=== PATIENT | female | born 1950 | race Caucasian/White ===

== ENCOUNTER → 2018-10-08 | Outpatient (CLI) | payer MEDICARE, MEDICAID ==
[~2018-10-08] MED LIST: ASPIRIN 81M81 MG/TA2 PO; ATIVAN 0.50.5 MG/TAB PO; ATIVAN1 MG PO; CLONAZEPAM PO; DESYREL 100MG100 MG PO; HALCION0.25 MG PO; HCTZ 25MG TAB25 MG PO; K-TAB20 PO; LAMICTAL 100MG100 MG PO; LEVOTHYROXIN0.112 MG PO; LEVOTHYROXINE0.1 MG PO; LISINOPRIL/HCTZ1 TA2 PO; LISINOPRIL20 MG PO; LORTAB 5/500 501 TAB PO; NAPROSYN500 MG PO; NORCO 325 MG-51 TAB PO; PERCOCET 325 MG1 TA2 PO; SYNTHROID0.2 MG/TAB PO; TOPROL XL100 MG PO; TRAZODONE150 MG PO; VISTARIL50 MG PO; VITAMIN B12 PO; VITAMIN C BUFF500 MG PO; VITAMIN C500 MG PO; VITAMIN E200 I1 PO; ZOLOFT 100MG100 MG PO
== END ==
LOC: MC.RAD 14:45
DX: Z12.31 Encounter for screening mammogram for malignant neoplasm of breast (principal)

== ENCOUNTER → 2018-10-10 | Outpatient (CLI) | payer MEDICARE, MEDICAID | LOC: MC.RAD 13:55 | DX: R92.0 Mammographic microcalcification found on diagnostic imaging of breast (principal) | CPT/HCPCS: G0279 ==

== ENCOUNTER → 2018-10-21 | Outpatient (CLI) | payer MEDICARE, MEDICAID | LOC: COL.RAD 14:41 | DX: G44.039 Episodic paroxysmal hemicrania, not intractable (principal); R90.82 White matter disease, unspecified ==

== ENCOUNTER 2019-03-20 04:30 | Emergency (ER) | payer MEDICARE, MEDICAID ==
[~2019-03-20] VITALS: Ht 160 cm; Wt 70.9 kg
[2019-03-20 04:38] VITALS: TEMP 97.7
[2019-03-20] MEDS ORDERED: KLONOPIN 0.5MG0.5 MG PO (05:25)
[2019-03-20] MEDS ORDERED: NORVASC 10MG10 MG PO (05:26)
[2019-03-20] MEDS ORDERED: FLEXERIL 1010 MG/TAB PO (05:26)
[2019-03-20] MEDS ORDERED: SYNTHROID0.075 MG/T PO (05:27)
[2019-03-20 06:50] VITALS: BP 163/105; PULSE 82
== END 2019-03-20 06:59 | disposition home or self-care (01) ==
LOC: COL.ER 04:30
DX: S01.312A Laceration without foreign body of left ear, initial encounter (principal); S09.90XA Unspecified injury of head, initial encounter; F31.9 Bipolar disorder, unspecified; I10 Essential (primary) hypertension; M19.90 Unspecified osteoarthritis, unspecified site; F17.210 Nicotine dependence, cigarettes, uncomplicated; Z79.82 Long term (current) use of aspirin; W01.0XXA Fall on same level from slipping, tripping and stumbling without subsequent striking against object, initial encounter; Y92.009 Unspecified place in unspecified non-institutional (private) residence as the place of occurrence of the external cause

== ENCOUNTER 2021-04-10 00:35 | Observation (INO) | payer MEDICARE, MEDICAID ==
[~2021-04-10] VITALS: Ht 162.6 cm; Wt 68.2 kg
[~2021-04-10 00:35] MED LIST changes: +CRUTCHES MC; +FLEXERIL 1010 MG/TAB PO; +KLONOPIN 0.5MG0.5 MG PO; +NORVASC 10MG10 MG PO; +SYNTHROID0.075 MG/T PO
[2021-04-10] MEDS ORDERED: GLUCOSAMINE & C1 CA2 PO (01:27)
[2021-04-10] MEDS ORDERED: K-DUR20 MEQ PO (01:27)
[2021-04-10] MEDS ORDERED: BELSOMRA5 MG PO (01:29)
[2021-04-10] MEDS ORDERED: RELAFEN 50500 MG/TAB PO (01:31)
[2021-04-10] MEDS ORDERED: HCTZ 25MG TAB25 MG PO (01:33)
[2021-04-10] MEDS ORDERED: SYNTHROID 0.10.15 MG PO (01:34)
[2021-04-10] MEDS ORDERED: CRESTOR20 MG PO (01:35)
[2021-04-10] MEDS ORDERED: KLONOPIN 0.5MG0.5 MG PO (01:40)
--- NOTE | 2021-04-10 03:33 | NUR ---
PT ADMITTED TO UNIT AT THIS TIME. ADMISSION INTAKE AND ASSESSMENT COMPLETED. PT ON 2L OXYGEN AT THIS TIME. EDEMA NOTED TO BLE. PT NWB ON L LEG. LUNG SOUNDS COARSE CRACKLES. WILL CONTINUE TO MONITOR.
[2021-04-10 04:22] LABS: BASO % 0.5 % (0.0-2.0); EOS # 0.2 (0.0-0.7); EOS % 2.4 % (0-4.0); GRAN # 5.2 (1.4-6.5); GRAN % 68.8 % (42.2-75.2); HEMATOCRIT 38.5 % (37.0-47.0); HEMOGLOBIN 12.5 g/dl (12.5-16.0); LYMPH # 1.5 (1.2-3.4); LYMPH % 20.1 % (20.0-51.0); MEAN CELL VOLUME 93 fl (80.0-100.0); MEAN CORPUSCULAR HEMOGLOBIN 30 pg (27.0-31.0); MEAN CORPUSCULAR HGB CONC 33 g/dl (33.0-37.0); MONO # 0.6 (0.1-0.6); MONO % 8.1 % (1.7-9.3); PLATELET COUNT 251 K/mm3 (130-400); RED BLOOD COUNT 4.14 M/mm3 (4.10-5.30); REDCELL DISTRIBUTION WIDTH-CV 13.2 % (11.5-14.5)
[2021-04-10 04:27] VITALS: BP 108/47; PULSE 61; TEMP 97.7
[2021-04-10 04:36] LABS: CALCIUM 8.3 mg/dL (8.4-10.2); CREATININE, serum 0.65 (0.52-1.25); POTASSIUM 3.3 mmol/L (3.4-5.0)
--- NOTE | 2021-04-10 05:56 | NUR ---
PT WAS ABLE TO GET SOME REST AFTER TRANSFERING TO UNIT. ELEVATED L LEG ON PILLOWS, PT STATES THIS PROVIDED RELIEF. DENIES ANY NEEDS AT THIS TIME. WILL CONTINUE TO MONITOR.
[2021-04-10 07:36] VITALS: BP 91/50; PULSE 55; TEMP 97.9
[2021-04-10 12:14] VITALS: BP 127/75; PULSE 66; TEMP 98.5
--- NOTE | 2021-04-10 14:08 | NUR ---
SW met with patient to complete intake. Patient states that she lives alone. Patient provides that her next of kin is her son Robert [phone]. Patient provides that she does not utilize DME and is independent with ADL's. Patient states that her PCP is Dr. Boyer, pharmacy is [facility]. Patient provides that her son Robert is her DPOA-HC. Patient provides that physician states that she will need to go to rehab up on dc due to not being able to bare weight on her foot for a duration of time. SW will continue to follow. DC: Placement for rehab
[2021-04-10 16:13] VITALS: BP 116/68; PULSE 58; TEMP 97.9
--- NOTE | 2021-04-10 17:20 | NUR ---
Patient is very pleasant. Did c/o SOB to the hospitalist. Hospitalist ordered appropriate labs and imagining. This RN is currently waiting for the patient's chest CT to be completed. Patient has received all scheduled medications without difficulty. Patient nervous about her ankle surgery on Sunday, but this RN was able to provide some reassurance. Patient stated, "I need to be in tip-top shape when I get out of here" and smiled. Patient still using BSC and remains NWB on the left.
[2021-04-10 19:40] VITALS: BP 98/54; PULSE 57; TEMP 98.1
--- NOTE | 2021-04-10 20:30 | NUR ---
Initial shift assessment done- states pain to left ankle 02/19,Hodges given as ordered, left ankle elevated, ice applied. Up to BSC to voids- pivots, no weight to left ankle. Requesting a chocolate ice cream for a snack tonight- given. o2 at 2L/nc, using IS- up to 1200
[2021-04-10 23:38] VITALS: BP 91/53; PULSE 60; TEMP 98.7
[2021-04-11 03:57] VITALS: BP 101/56; PULSE 58; TEMP 98.5
--- NOTE | 2021-04-11 06:30 | NUR ---
Did get some sleep last night-- medicated for left ankle pain x2 this shift- ice remains to ankle, elevated
[2021-04-11 07:56] VITALS: BP 116/55; PULSE 66; TEMP 97.4
--- NOTE | 2021-04-11 08:23 | NUR ---
Patient resting in be with her left leg elevated. Splint looks good, ice is placed over it per ortho's orders. All morning medications administered as scheduled. Waiting for pharmacy to grab the patient's 2 home medications so they can be labeled. Patient has no complaints at this time.
[2021-04-11 11:21] VITALS: BP 120/60; PULSE 66; TEMP 97.6
[2021-04-11 16:17] VITALS: BP 142/80; PULSE 78; TEMP 97.6
--- NOTE | 2021-04-11 16:32 | NUR ---
[facility] accepts patient upon discharge and will submit for insurance authorization.
[2021-04-11 18:56] LABS: PROCALCITONIN <0.05 ng/mL (0.00-0.09)
[2021-04-11 21:24] VITALS: BP 122/77; PULSE 74; TEMP 98
--- NOTE | 2021-04-11 23:06 | NUR ---
PT RESTING IN BED. EVENING MEDICATIONS GIVEN. PT STATES THE PAIN IN HER LEG IS A 4/10 AND REQUESTED IT BE REPOSTIONED ON THE PILLOWS. PT DENIES ANY OTHER NEEDS AT THIS TIME. WILL CONTINUE TO MONITOR.
[2021-04-12] VITALS (14 sets, daily range): BP systolic 88–114; BP diastolic 51–80; PULSE 55–69; TEMP 97.6–98.4
--- NOTE | 2021-04-12 06:29 | NUR ---
PT HAD A RESTFUL NIGHT. PT SEEMS UPBEAT ABOUT PROCEDURE LATER TODAY. PT HAS BEEN NPO SINCE MIDNIGHT. DENIES ANY NEEDS AT THIS TIME. WILL CONTINUE TO MONITOR.
--- NOTE | 2021-04-12 07:18 | NUR ---
REPORT RECEIVED FROM TYLER LEONARDO. PT ASLEEP IN BED. BREATHING REGULAR/UNLABORED. CALL WHITNEY IN REACH.
[2021-04-12 07:20] LABS: BASO # 0.1 (0.0-0.2); BASO % 0.8 % (0.0-2.0); EOS # 0.3 (0.0-0.7); EOS % 4.1 % (0-4.0); GRAN # 3.7 (1.4-6.5); HEMATOCRIT 40.7 % (37.0-47.0); LYMPH # 1.6 (1.2-3.4); LYMPH % 25.2 % (20.0-51.0); MEAN CELL VOLUME 95 fl (80.0-100.0); MEAN CORPUSCULAR HEMOGLOBIN 30 pg (27.0-31.0); MEAN CORPUSCULAR HGB CONC 32 g/dl (33.0-37.0); MEAN PLATELET VOLUME 11.1 fl (7.4-10.4); MONO # 0.6 (0.1-0.6); MONO % 9.7 % (1.7-9.3); PLATELET COUNT 249 K/mm3 (130-400); RED BLOOD COUNT 4.29 M/mm3 (4.10-5.30); REDCELL DISTRIBUTION WIDTH-CV 13.4 % (11.5-14.5)
[2021-04-12 09:08] LABS: CREATININE, serum 1.02 (0.52-1.25); POTASSIUM 4.6 mmol/L (3.4-5.0)
--- NOTE | 2021-04-12 10:55 | NUR ---
PT TAKEN DOWNSTAIRS FOR SURGERY. LR ELE. CONSENT IN CHART
--- NOTE | 2021-04-12 14:09 | NUR ---
PT RETURNED FROM PACU. ALERT/ORIENT X4. PLEASANTLY CONVERSING. VITALS WITHIN NORMAL LIMITS. PT ON 3L 02. PT DENIES ANY PAIN. WILL CONTINUE TO MONITOR
--- NOTE | 2021-04-12 15:21 | NUR ---
cab worker met with patient and advised that [facility] accepted and will put in for authorization to accept on 04/13/2021. Patient verbalized agreement with the above plan.
--- NOTE | 2021-04-12 16:18 | NUR ---
PT BP READING 88/63. RECHECKED MANUALLY AND READ 84/50. MATTHEW BRITT NOTIFIED AND IS PUTTING IN ORDER FOR A BOLUS. WILL CONTINUE TO MONITOR
--- NOTE | 2021-04-12 16:37 | NUR ---
PT BOLUSED WITH 500ML OF FLUID RUNNING WIDE OPEN. PT ASYMPTOMATIC. WILL CONTINUE TO MONITOR
--- NOTE | 2021-04-12 18:33 | NUR ---
PT WENT TO OR TODAY FOR L ANKLE FRACTURE. PT HAD HYPOTENSIVE EPISODE POST-OP AND WAS RECIEVED A FLUID BOLUS. BP WITHIN NORMAL RANGE NOW. PT ALERT/ORIENT X4, DENIES ANY PAIN, AND HAS NO OTHER REQEUSTS AT THIS TIME. CALL WHITNEY IN REACH.
--- NOTE | 2021-04-12 21:06 | NUR ---
PT RESTING IN BED. EVENING MEDICATIONS GIVEN. L LEF WRAPPPED AT THIS TIME AND ELEVATED. PT STATES SHE HAS MODERATE PAIN AT THIS TIME. PT DENIES ANY NEEDS AT THIS TIME. WILL CONTINUE TO MONITOR.
[2021-04-13 04:13] VITALS: BP 117/52; PULSE 70; TEMP 98.7
--- NOTE | 2021-04-13 05:45 | NUR ---
PT HAD A RESTFUL NIGHT. DENIES PAIN AND REFUSES ANY PAIN MEDICATION. MORNING MEDICATIONS GIVEN. DENIES ANY NEEDS AT THIS TIME. WILL CONTINUE TO MONITOR.
--- NOTE | 2021-04-13 06:46 | NUR ---
PT ASKING AID WHAT TIME HER SURGERY IS THIS MORNING. I WENT IN TO EXPLAIN TO PT THAT SHE HAD HER SURGERY YESTERDAY AND SHOULD BE DISCHARGED TO [facility]IA [facility] TODAY. OT BELIEVES WE ARE ALL PLAYING A TRICK ON HER AND IS AFFRAID THAT IF WE AREN'T THAT HER BIPOLAR MEDS MIGHT NOT BE WORKING. TRIED TO THE BEST OF MY ABILITIES TO CALM PT BUT SHE IS RELUCTANT TO BELIEVE WE ARE BEING HONEST WITH HER.
--- NOTE | 2021-04-13 07:18 | NUR ---
pt having inc confusion, does not believe she had surgery yesterday, keeps insisting "you're playing a trick on me". pt very tearful. pt will then evade orientation questions and saying "im in the [facility] [place], where's rupinder" while laughing. pt requesting pain medications, Deisy CASTRO notified and tylenol ordered for pt.
[2021-04-13 07:21] VITALS: BP 124/62; PULSE 82; TEMP 97.8
[2021-04-13 08:39] LABS: BASO # 0.1 (0.0-0.2); BASO % 0.6 % (0.0-2.0); EOS # 0.2 (0.0-0.7); EOS % 2.3 % (0-4.0); GRAN # 6.1 (1.4-6.5); GRAN % 70.2 % (42.2-75.2); HEMATOCRIT 37.8 % (37.0-47.0); LYMPH # 1.6 (1.2-3.4); LYMPH % 17.9 % (20.0-51.0); MEAN CELL VOLUME 95 fl (80.0-100.0); MEAN CORPUSCULAR HEMOGLOBIN 30 pg (27.0-31.0); MEAN CORPUSCULAR HGB CONC 32 g/dl (33.0-37.0); MEAN PLATELET VOLUME 10.1 fl (7.4-10.4); MONO # 0.8 (0.1-0.6); MONO % 8.7 % (1.7-9.3); PLATELET COUNT 264 K/mm3 (130-400); RED BLOOD COUNT 3.97 M/mm3 (4.10-5.30); REDCELL DISTRIBUTION WIDTH-CV 13.4 % (11.5-14.5)
[2021-04-13 08:50] LABS: CALCIUM 8.8 mg/dL (8.4-10.2); CREATININE, serum 0.95 (0.52-1.25); POTASSIUM 4.8 mmol/L (3.4-5.0)
--- NOTE | 2021-04-13 09:24 | NUR ---
rollway worker attended clinical rounds. Patient will transfer to [facility] today. Worker faxed clinicals to [facility] so they can obtain authorization.
[2021-04-13] MEDS ORDERED: IPRATROPIUM BROM3 M1 IH (09:43)
[2021-04-13] MEDS ORDERED: CRESTOR20 MG PO (09:43)
[2021-04-13] MEDS ORDERED: FLEXERIL 1010 MG/TAB PO (09:43)
[2021-04-13] MEDS ORDERED: ASPIRIN 81M81 MG/TA2 PO (09:44)
[2021-04-13] MEDS ORDERED: NORCO 325 MG-51 TAB PO (09:44)
[2021-04-13] MEDS ORDERED: NORVASC 10MG10 MG PO (09:44)
[2021-04-13] MEDS ORDERED: TOPROL XL100 MG PO (09:44)
[2021-04-13] MEDS ORDERED: TYLENOL 325MG325 MG PO (09:45)
[2021-04-13] MEDS ORDERED: ZOLOFT 100MG100 MG PO (09:46)
[2021-04-13] MEDS ORDERED: DESYREL 100MG100 MG PO (09:46)
[2021-04-13] MEDS ORDERED: LAMICTAL 100MG100 MG PO (09:46)
[2021-04-13] MEDS ORDERED: KLONOPIN 0.5MG0.5 MG PO (09:46)
[2021-04-13] MEDS ORDERED: VISTARIL50 MG PO (09:48)
[2021-04-13] MEDS ORDERED: BELSOMRA5 MG PO (09:49)
--- NOTE | 2021-04-13 09:51 | NUR ---
PT ORIENTED X4 AT THIS TIME. NO LONGER BELIEVES WE WERE TRYING TO "PLAY A TRICK" ON HER. PT TOOK MEDICATIONS AND ASSESSMENT PERFORMED. TYLENOL GIVEN AND PT NOW REPORTS PAIN AT A 3/10 AT REST. COVID SWAB OBTAINED FOR TRANSFER TO [facility]. NO OTHER NEEDS
[2021-04-13] MEDS ORDERED: HCTZ 25MG TAB25 MG PO (09:55)
[2021-04-13] MEDS ORDERED: K-DUR20 MEQ PO (09:55)
[2021-04-13] MEDS ORDERED: DULCOLAX TAB5 MG PO (09:55)
[2021-04-13] MEDS ORDERED: MIRALAX PA17 GM/Dose PO (09:56)
[2021-04-13] MEDS ORDERED: PEPCID 20MG TAB20 MG PO (09:56)
[2021-04-13] MEDS ORDERED: GLUCOSAMINE & C1 CA2 PO (09:57)
[2021-04-13] MEDS ORDERED: SYNTHROID 0.10.15 MG PO (09:57)
[2021-04-13 12:08] VITALS: BP 113/52; PULSE 66; TEMP 98.2
[2021-04-13 12:15] VITALS: BP 113/52; PULSE 66; TEMP 98.2
--- NOTE | 2021-04-13 13:29 | NUR ---
[facility] with [facility] accepts patient to skilled care today and arranged for a 2:30 transfer via their facility wheelchair van at 2:30. germination worker met with patient to discuss transfer plan. Patient is agreeable with her discharge plans.
--- NOTE | 2021-04-13 14:07 | NUR ---
ATTEMPTED TO CALL REPORT TO [facility] BUT LINE RINGING "BUSY"
--- NOTE | 2021-04-13 15:04 | NUR ---
REPORT CALLED [facility]
--- NOTE | 2021-04-13 15:35 | NUR ---
PT ESCORTED OUT VIA WHEELCHAIR. IV WAS REMOVED. NO OTHER NEEDS
== END 2021-04-13 15:20 ==
LOC: COL.ER 00:35 → MEDICAL 01:50
PROVIDERS: Internal Medicine; Nurse Practitioner Family; Physician Assistant; ADMIT Internal Medicine
DX: S82.852A Displaced trimalleolar fracture of left lower leg, initial encounter for closed fracture (principal); I10 Essential (primary) hypertension; I95.9 Hypotension, unspecified; E03.9 Hypothyroidism, unspecified; R09.02 Hypoxemia; J44.9 Chronic obstructive pulmonary disease, unspecified; E78.5 Hyperlipidemia, unspecified; E11.9 Type 2 diabetes mellitus without complications; E87.6 Hypokalemia; F41.9 Anxiety disorder, unspecified; F31.9 Bipolar disorder, unspecified; M19.042 Primary osteoarthritis, left hand; M19.041 Primary osteoarthritis, right hand; F17.210 Nicotine dependence, cigarettes, uncomplicated; W07.XXXA Fall from chair, initial encounter; Y93.89 Activity, other specified; Z79.899 Other long term (current) drug therapy; Z79.890 Hormone replacement therapy; Z79.82 Long term (current) use of aspirin; Z79.4 Long term (current) use of insulin
CPT/HCPCS: 99231-AI; 99232-AI; A9284; C1713; G0378; J0690; J2250; J2405; J2704; J2795; J3010; J7040; J7120; Q9967

== ENCOUNTER 2021-12-31 22:23 | Emergency (ER) | payer MEDICARE, MEDICAID ==
[~2021-12-31] VITALS: Ht 160 cm; Wt 70.9 kg
[~2021-12-31 22:23] MED LIST changes: +BELSOMRA5 MG PO; +CRESTOR20 MG PO; +DULCOLAX TAB5 MG PO; +GLUCOSAMINE & C1 CA2 PO; +IPRATROPIUM BROM3 M1 IH; +K-DUR20 MEQ PO; +MIRALAX PA17 GM/Dose PO; +PEPCID 20MG TAB20 MG PO; +RELAFEN 50500 MG/TAB PO; +SYNTHROID 0.10.15 MG PO; +TYLENOL 325MG325 MG PO
[2021-12-31 22:34] VITALS: TEMP 98.6
[2021-12-31] MEDS ORDERED: MEDROL 4MG DOSPA4 MG PO (23:34)
[2021-12-31 23:49] VITALS: BP 156/70; PULSE 59
== END 2021-12-31 23:49 | disposition home or self-care (01) ==
LOC: COL.ER 22:23
DX: M25.472 Effusion, left ankle (principal); F17.210 Nicotine dependence, cigarettes, uncomplicated; Z98.890 Other specified postprocedural states; Z87.81 Personal history of (healed) traumatic fracture
CPT/HCPCS: J1885

== ENCOUNTER 2022-04-24 03:45 | Emergency (ER) | payer MEDICARE, MEDICAID ==
[~2022-04-24] VITALS: Ht 160 cm; Wt 65.0 kg
[~2022-04-24 03:45] MED LIST changes: +MEDROL 4MG DOSPA4 MG PO
[2022-04-24 03:46] VITALS: TEMP 98.6
[2022-04-24 05:13] VITALS: BP 119/68; PULSE 62
[2022-04-24] MEDS ORDERED: VOLTAREN 75 DR75 MG PO (05:40)
[2022-04-24] MEDS ORDERED: SYNTHROID0.175 MG PO (05:47)
[2022-04-24] MEDS ORDERED: LAMICTAL150 MG PO (05:47)
[2022-04-24] MEDS ORDERED: NORVASC 5MG5 MG/TAB PO (05:49)
[2022-04-24] MEDS ORDERED: IPRATROPIUM BROM3 M1 IH (05:50)
[2022-04-24] MEDS ORDERED: D3-5050000 IU PO (05:51)
[2022-04-24] MEDS ORDERED: DULCOLAX TAB5 MG PO (05:51)
[2022-04-24] MEDS ORDERED: FLEXERIL 1010 MG/TAB PO (05:52)
[2022-04-24] MEDS ORDERED: ERGOCALCIFER50000 IU PO (05:53)
[2022-04-24] MEDS ORDERED: NICODERM C7 MG/PATCH TD (05:53)
== END 2022-04-24 05:13 | disposition home or self-care (01) ==
LOC: COL.ER 03:45
DX: S13.4XXA Sprain of ligaments of cervical spine, initial encounter (principal); S40.012A Contusion of left shoulder, initial encounter; S40.011A Contusion of right shoulder, initial encounter; S09.90XA Unspecified injury of head, initial encounter; Z79.891 Long term (current) use of opiate analgesic; W18.30XA Fall on same level, unspecified, initial encounter

== ENCOUNTER 2022-06-09 16:58 | Inpatient (IN) | payer MEDICARE, MEDICAID ==
[~2022-06-09] VITALS: Ht 160 cm; Wt 57.8 kg
[~2022-06-09 16:58] MED LIST changes: +D3-5050000 IU PO; +ERGOCALCIFER50000 IU PO; +LAMICTAL150 MG PO; +NICODERM C7 MG/PATCH TD; +NORVASC 5MG5 MG/TAB PO; +SYNTHROID0.175 MG PO; +VOLTAREN 75 DR75 MG PO
[2022-06-09 17:52] LABS: BASO # 0.1 K/mm3 (0.0-0.2); BASO % 0.5 % (0.0-2.0); EOS # 0.2 K/mm3 (0.0-0.7); EOS % 1.3 % (0.0-4.0); GRAN # 8.7 K/mm3 (1.4-6.5); GRAN % 72.1 % (42.2-75.2); HEMOGLOBIN 15.5 g/dl (12.5-16.0); LYMPH # 1.9 K/mm3 (1.2-3.4); LYMPH % 15.5 % (20.0-51.0); MEAN CELL VOLUME 85 fl (80.0-100.0); MEAN CORPUSCULAR HEMOGLOBIN 28 pg (27-31); MEAN CORPUSCULAR HGB CONC 33 g/dl (33.0-37.0); MEAN PLATELET VOLUME 11.4 fl (7.4-10.4); MONO # 1.2 K/mm3 (0.1-0.6); MONO % 10.2 % (1.7-9.3); PLATELET COUNT 347 K/mm3 (130-400); RED BLOOD COUNT 5.52 M/mm3 (4.10-5.30); REDCELL DISTRIBUTION WIDTH-CV 13.4 % (11.5-14.5)
[2022-06-09 18:23] LABS: ALBUMIN 3.1 gm/dL (3.4-4.8); BILIRUBIN,TOTAL 0.5 mg/dL (0.2-1.2); C-REACTIVE PROTEIN 1.84 mg/dL (0.00-0.50); CALCIUM 9.1 mg/dL (8.4-10.2); CREATININE, serum 2.22 mg/dL (0.57-1.11); TOTAL PROTEIN 7.1 gm/dL (6.2-8.1)
[2022-06-09 18:24] LABS: POTASSIUM 2.9 mmol/L (3.5-4.5)
[2022-06-09 18:39] LABS: TROPONIN-I 0.045 ng/mL (0.00-0.033)
[2022-06-09 19:56] LABS: COLLECTION METHOD CLEAN CATCH
[2022-06-09 20:12] LABS: MUCOUS Present (NOT PRESENT); SQUAMOUS EPITHELIAL 0-2 /hpf (0-10); URINE BACTERIA None Seen /hpf (NONE SEEN); URINE RBC 0-2 /hpf (0-2)
[2022-06-09 20:13] LABS: PH 5.5 (5-8); URINE APPEARANCE Clear (CLEAR/HAZY); URINE BLOOD TRACE-INTACT (NEGATIVE); URINE COLOR Yellow (YELLOW); URINE GLUCOSE Negative (NEGATIVE); URINE KETONE Negative (NEGATIVE); URINE NITRATE Negative (NEGATIVE); URINE PROTEIN(semi-quant) 1+ (NEGATIVE); URINE UROBILINOGEN 0.2 (NEGATIVE)
[2022-06-09 20:37] LABS: MAGNESIUM 2.5 mg/dL (1.6-2.6); PHOSPHOROUS 3.3 mg/dL (2.3-4.7)
[2022-06-09 23:21] VITALS: BP 142/75; PULSE 56; TEMP 98.4
[2022-06-10 03:55] VITALS: BP 103/48; PULSE 56; TEMP 98.6
--- NOTE | 2022-06-10 04:42 | NUR ---
06/09/22 2300 PATIENT ARRIVED BY [facility] TO MEDICAL UNIT. PATIENT HAS TWO IV FLUIDS INFUSING. PATIENT IS IN [facility] [employer] AND IS ALERT & ORIENTED X 4. PT IS ORIENTED TO ROOM AT THIS TIME. CALL LIGHT IS SECURED TO BED RAILING AND IS WITHIN REACH OF PATIENT. PATIENT IS ENCOURAGED TO CALL WITH ANY NEEDS OR CONCERNS.
--- NOTE | 2022-06-10 06:05 | NUR ---
THIS NURSE ATTEMPTED TO RESTART PATINET FLAGYL AFTER SHIRRING MACHINE OPERATOR, ESSIE SUCCESSFULLY STARTED A 20G RW IV. AFTER THE IV RAN APPROXIMATELY 2 MINUTES, THE PATIENT BEGAN CRYING OUT SHE COULD NOT TOLERATE IT. JAX MICHAUD STATES PATIENT WILL NEED PICC LINE. THIS NURSE LEFT IV IN LEFT WRIST. CALL LIGHT REMAINS IN REACH OF PATIENT. PATIENT ENCOURAGED TO CALL WITH ANY NEEDS OR CONCERNS.
[2022-06-10 06:40] LABS: HEMATOCRIT 37.6 % (37.0-47.0); MEAN CORPUSCULAR HGB CONC 32 g/dl (33.0-37.0); RED BLOOD COUNT 4.19 M/mm3 (4.10-5.30); REDCELL DISTRIBUTION WIDTH-CV 13.7 % (11.5-14.5)
[2022-06-10 06:54] LABS: MEAN CELL VOLUME 90 fl (80.0-100.0); MEAN CORPUSCULAR HEMOGLOBIN 29 pg (27-31); PLATELET COUNT 219 K/mm3 (130-400)
[2022-06-10 07:05] LABS: ALBUMIN 2.3 gm/dL (3.4-4.8); BILIRUBIN,TOTAL 0.3 mg/dL (0.2-1.2); CALCIUM 7.2 mg/dL (8.4-10.2); CREATININE, serum 1.53 mg/dL (0.57-1.11); POTASSIUM 3.2 mmol/L (3.5-4.5); TOTAL PROTEIN 4.8 gm/dL (6.2-8.1)
[2022-06-10 07:37] VITALS: BP 97/47; PULSE 55; TEMP 97.9
--- NOTE | 2022-06-10 08:00 | NUR ---
Shift assessment preformed. Scheduled medications given. VSS. Patient A&O. Patient denies any pain, discomfort, SOA, or further needs at this time. Call light in reach. Fall precautions in place.
--- NOTE | 2022-06-10 11:04 | NUR ---
SW met with pt to complete intake.Pt reports she lives at [facility] and is independentn on all ADLS and does not use any DME and only needs help with medication management. Pt DPOA-HC is her son, Robert ph# [phone] and gets medications from [facility]. No other needs at this time. DC: Back to [facility].
[2022-06-10 11:44] VITALS: BP 95/53; PULSE 56; TEMP 98.3
[2022-06-10 15:53] VITALS: BP 100/47; PULSE 58; TEMP 98.2
--- NOTE | 2022-06-10 18:00 | NUR ---
Patient has had an ok day. VSS. Patient A&O. Fluids running as ordered. One dose of prn zofran given. Patient currently resting in bed. Denies any pain, discomfort, SOA, or further needs at this time. Call light in reach.
[2022-06-10 20:36] VITALS: BP 92/49; PULSE 61; TEMP 98.3
--- NOTE | 2022-06-10 23:14 | NUR ---
PATIENT IS LAYING IN BED WITH LAB PRESENT IN ROOM. LAB IS NOTIFIED BY THIS NURSE THAT APPLYING A WARM BLANKET LAST NIGHT REALLY HELPED THE PATIENT'S VEINS EXPAND. HAZMAT TANKER DRIVER STATED UNDERSTANDING AND APPLIED A BABY HEEL WARMER TO AREA. PATIENT TOLD HAZMAT TANKER DRIVER SHE WAS REFUSING LAB DRAW AT THIS TIME BUT WOULD ALLOW ANOTHER HAZMAT TANKER DRIVER IN THE AM TO REDRAW THE LAB. PATIENT STATES SHE WANTS TO GO HOME. PATIENT REQUESTS A GLASS OF ICE WATER, BUT FIRST WOULD LIKE ASSISTANCE TO BATHROOM. THIS NURSE ASSIST PATIENT TO BATHROOM AT THIS TIME. PATIENT VOIDED. PATIENT ASKED THIS NURSE TO HELP WITH JOSHUA CARE, THIS NURSE PERFORMED JOSHUA CARE. PATIENT STATED SHE HAD NO PAIN AND NO FURTHER QUESTIONS OR CONCERNS. PATIENT MADE SURE SHE HAD CALL LIGHT IN HAND BEFORE THIS NURSE LEFT THE ROOM.
[2022-06-10 23:52] VITALS: BP 162/69; PULSE 63; TEMP 98.7
[2022-06-11 04:18] VITALS: BP 96/46; PULSE 61; TEMP 98.8
[2022-06-11 05:26] LABS: BASO % 0.7 % (0.0-2.0); EOS # 0.3 K/mm3 (0.0-0.7); GRAN # 3.6 K/mm3 (1.4-6.5); GRAN % 65.7 % (42.2-75.2); HEMOGLOBIN 11.1 g/dl (12.5-16.0); LYMPH % 17.7 % (20.0-51.0); MEAN CELL VOLUME 89 fl (80.0-100.0); MEAN CORPUSCULAR HEMOGLOBIN 29 pg (27-31); MEAN CORPUSCULAR HGB CONC 32 g/dl (33.0-37.0); MEAN PLATELET VOLUME 11.8 fl (7.4-10.4); MONO # 0.6 K/mm3 (0.1-0.6); MONO % 10.7 % (1.7-9.3); PLATELET COUNT 150 K/mm3 (130-400); RED BLOOD COUNT 3.89 M/mm3 (4.10-5.30); REDCELL DISTRIBUTION WIDTH-CV 14.2 % (11.5-14.5)
[2022-06-11 05:27] LABS: HEMATOCRIT 34.6 % (37.0-47.0)
[2022-06-11 05:37] LABS: CALCIUM 7.1 mg/dL (8.4-10.2); CREATININE, serum 1.2 mg/dL (0.57-1.11); POTASSIUM 3.2 mmol/L (3.5-4.5)
[2022-06-11 08:00] VITALS: BP 116/58; PULSE 93; TEMP 98.3
[2022-06-11 12:00] VITALS: BP 134/74; PULSE 75
[2022-06-11 16:00] VITALS: BP 109/58; PULSE 65; TEMP 98
--- NOTE | 2022-06-11 18:00 | NUR ---
Shift assessment preformed. Scheduled medications given. VSS. Patient A&O. PRN norco given once this shift for right flank pain. Patient voiced that this helped alleviate her pain. Patient denies any further pain, discomfort, SOA, or further needs at this time. Call light in reach. Fall precautions in place.
[2022-06-11 20:09] VITALS: BP 106/55; PULSE 70; TEMP 98.8
[2022-06-11 23:59] VITALS: BP 124/77; PULSE 73; TEMP 98.6
--- NOTE | 2022-06-12 00:43 | NUR ---
Patient assessed around 2029. Given PRN Zofran as requested for nausea. Continues on IV ABX per orders. Denies having pain and discomfort. Aware that she is NPO after midnight. Went over HS medications with patient. Stated that she had been given two tablets of her Trazadone last night, and was only receiving one and a half tabs tonight (150 mg total per orders). Patient upset when hanging midnight ABX. Asked why she was recieving them during the night, when last night she did not, and why staff was checking her VS when they were not checked last night . Explained that this nurse was not here last night, so this nurse can not compare what happened last night. Stated that she is on ABX around the clock, and that staff frequently check in on patient's throughout the night, usually about every 2 hours, and that VS are checked every 4 hours. Did tell patient that she has a right to refuse any medications and VS if she chooses to do so. Patient allowed ABX to be started and rolled to side, stated "we will see about that" (regarding VS). Talked to patient about checking VS and giving 0700 medications around 0500 so that staff does not wake her up multiple times. Patient stated she would prefer. Thanked this nurse for cares, and appologized, stating she was just tired and hasn't gotten much sleep. In bed with call light within reach. High fall risk precautions in place. Bed alarm on.
[2022-06-12 05:53] VITALS: BP 104/54; PULSE 84; TEMP 98.2
--- NOTE | 2022-06-12 06:23 | NUR ---
Patient has had no further complaints of nausea, pain, or discomfort this shift. No BM this shift. Voices no questions, needs, or concerns at this time. In bed with call light within reach. High fall risk precautions in place. Received IV ABX per orders during the night. Bed alarm on.
[2022-06-12 07:10] LABS: CALCIUM 7.3 mg/dL (8.4-10.2); CREATININE, serum 1.06 mg/dL (0.57-1.11); POTASSIUM 3.8 mmol/L (3.5-4.5)
[2022-06-12 07:11] LABS: BASO % 0.5 % (0.0-2.0); EOS # 0.3 K/mm3 (0.0-0.7); GRAN # 3.3 K/mm3 (1.4-6.5); HEMOGLOBIN 11.9 g/dl (12.5-16.0); LYMPH # 1.5 K/mm3 (1.2-3.4); LYMPH % 25.8 % (20.0-51.0); MEAN CELL VOLUME 90 fl (80.0-100.0); MEAN CORPUSCULAR HEMOGLOBIN 28 pg (27-31); MEAN CORPUSCULAR HGB CONC 31 g/dl (33.0-37.0); MEAN PLATELET VOLUME 12.6 fl (7.4-10.4); MONO # 0.7 K/mm3 (0.1-0.6); MONO % 12.4 % (1.7-9.3); PLATELET COUNT 170 K/mm3 (130-400); RED BLOOD COUNT 4.24 M/mm3 (4.10-5.30); REDCELL DISTRIBUTION WIDTH-CV 14.5 % (11.5-14.5)
[2022-06-12 07:42] VITALS: BP 127/60; PULSE 72; TEMP 98.4
--- NOTE | 2022-06-12 09:38 | NUR ---
CALLED PATIENT SON FOR UPDATE ON DISCHARGE. SON WAS CONCERNED THAT IF SHE WAS NAUSEATED AND VOMITING YESTERDAY, HOW WOULD SHE BE READY TO COME HOME TODAY. I STATED THAT PATIENT HAS NOT BEEN NAUSEATED OVERNIGHT OR THIS AM, AND IS KEEPING FOOD DOWN. WILL CONTINUE TO MONITOR. PATIENT IS SCHEDULED TO DISCHARGE WITH [facility] AT 1100.
[2022-06-12 11:17] VITALS: BP 106/55; PULSE 77; TEMP 98.2
--- NOTE | 2022-06-12 11:52 | NUR ---
CALLED REPORT TO [facility] WHERE PATIENT WILL BE DEPARTING BACK TO. NO ISSUES WITH REPORT. ACKNOWLEDGED UNDERSTANDING.
--- NOTE | 2022-06-12 12:38 | NUR ---
Manipulator Operator met attended clinical rounds and patient to discharge back to [facility] today. YOGI contacted TYLER Howard at [place] and faxed updates with discharge orders. Anita will come tow picker patient at 1100. SW contacted patient's son, Robert and notified him of discharge. SW also provided transport time to patient. Discharge Plan: [facility]
== END 2022-06-12 17:00 | DRG 445 ==
LOC: COL.ER 16:58 → MEDICAL 19:16
PROVIDERS: Nurse Practitioner Family; Physician Assistant; Student in an Organized Health Care Education/Training Program; ADMIT Internal Medicine
DX: K82.8 Other specified diseases of gallbladder (principal); N17.9 Acute kidney failure, unspecified; K82.4 Cholesterolosis of gallbladder; E86.0 Dehydration; N28.1 Cyst of kidney, acquired; E78.5 Hyperlipidemia, unspecified; I10 Essential (primary) hypertension; E03.9 Hypothyroidism, unspecified; F41.9 Anxiety disorder, unspecified; F31.9 Bipolar disorder, unspecified; L40.50 Arthropathic psoriasis, unspecified; J44.9 Chronic obstructive pulmonary disease, unspecified; K21.9 Gastro-esophageal reflux disease without esophagitis; F17.210 Nicotine dependence, cigarettes, uncomplicated; Z20.822 Contact with and (suspected) exposure to COVID-19; E87.6 Hypokalemia; G47.00 Insomnia, unspecified; Z90.710 Acquired absence of both cervix and uterus; Z90.89 Acquired absence of other organs; Z88.1 Allergy status to other antibiotic agents; Z88.0 Allergy status to penicillin; Z79.890 Hormone replacement therapy; Z79.82 Long term (current) use of aspirin
CPT/HCPCS: C9113; J0744; J1644; J2405; J3480; J7030

== ENCOUNTER 2022-12-20 13:01 | Emergency (ER) | payer MEDICARE, MEDICAID ==
[~2022-12-20] VITALS: Ht 160 cm; Wt 65.0 kg
[~2022-12-20 13:01] MED LIST changes: +ANTI-DIARRHEAL2 MG PO; +FOSAMAX 70MG TA70 MG PO; +MUCINEX DM 60 M1 TER PO; +MYSOLINE 5050 MG/TAB PO; +NORCO 325 MG-7.1 TAB PO; +PHENERGAN 25 TA25 MG PO; +SALONPAS1 EACH TP; +SENEXON-S 50-81 EACH PO; +ZYPREXA ZYDIS5 MG PO
[2022-12-20 13:13] VITALS: BP 174/104; TEMP 98.3
[2022-12-20] MEDS ORDERED: CLEOCIN HCL300 MG PO (14:10)
[2022-12-20 14:25] VITALS: PULSE 78
== END 2022-12-20 14:25 | disposition home or self-care (01) ==
LOC: COL.ER 13:01
DX: S91.342A Puncture wound with foreign body, left foot, initial encounter (principal); F17.210 Nicotine dependence, cigarettes, uncomplicated; Z88.0 Allergy status to penicillin; W45.8XXA Other foreign body or object entering through skin, initial encounter

== ENCOUNTER → 2024-05-19 | Outpatient (CLI) | payer MEDICARE, MEDICAID ==
[~2024-05-19] MED LIST changes: +CLEOCIN HCL300 MG PO
== END ==
LOC: COL.RAD 10:12
DX: S82.002A Unspecified fracture of left patella, initial encounter for closed fracture (principal); X58.XXXA Exposure to other specified factors, initial encounter

== ENCOUNTER 2024-07-07 15:53 | Inpatient (IN) | payer MEDICARE, MEDICAID ==
[~2024-07-07] VITALS: Ht 162.6 cm; Wt 59.8 kg
[2024-07-07] MEDS ORDERED: Albuterol/Ipratropium 3 MG-0.5 MG/3 ML Neb Soln IH SCH ×2 (16:30→20:00)
[2024-07-07] MEDS ORDERED: LR 1,000 ML IV ONE (16:30)
[2024-07-07] MEDS ORDERED: dexAMETHasone 10 MG/ML VIAL IV ONE (16:30)
[2024-07-07 16:51] LABS: BASO % 0.4 % (0.0-2.0); EOS % 0.2 % (0.0-4.0); GRAN # 4.5 K/mm3 (1.4-6.5); GRAN % 78.8 % (42.2-75.2); HEMATOCRIT 40.4 % (37.0-47.0); HEMOGLOBIN 12.9 g/dl (12.5-16.0); LYMPH # 0.6 K/mm3 (1.2-3.4); LYMPH % 9.9 % (20.0-51.0); MEAN CELL VOLUME 86 fl (80.0-100.0); MEAN CORPUSCULAR HEMOGLOBIN 27 pg (27-31); MEAN CORPUSCULAR HGB CONC 32 g/dl (33.0-37.0); MEAN PLATELET VOLUME 10.6 fl (7.4-10.4); MONO # 0.6 K/mm3 (0.1-0.6); MONO % 10.5 % (1.7-9.3); PLATELET COUNT 236 K/mm3 (130-400); RED BLOOD COUNT 4.71 M/mm3 (4.10-5.30); REDCELL DISTRIBUTION WIDTH-CV 14.6 % (11.5-14.5)
[2024-07-07 17:10] LABS: ALBUMIN 3.8 g/dL (3.4-4.8); BILIRUBIN,TOTAL 0.3 mg/dL (0.2-1.2); CALCIUM 9.1 mg/dL (8.4-10.2); CREATININE, serum 0.86 mg/dL (0.57-1.11); TOTAL PROTEIN 7.9 g/dl (6.2-8.1)
[2024-07-07 17:14] LABS: POTASSIUM 2.9 mEq/L (3.5-4.5)
[2024-07-07] MEDS ORDERED: Oseltamivir 75 MG CAP PO ONE (17:15)
[2024-07-07 17:19] LABS: TROPONIN-I 0.026 ng/mL (0.00-0.033)
[2024-07-07] MEDS ORDERED: TYLENOL 500MG500 MG PO (17:53)
[2024-07-07] MEDS ORDERED: VITAMIN B11000 MCG/M IM (17:55)
[2024-07-07] MEDS ORDERED: FLEXERIL 1010 MG/TAB PO (17:56)
[2024-07-07] MEDS ORDERED: DETROL 2MG TAB2 MG PO (17:57)
[2024-07-07] MEDS ORDERED: DICLOFENAC SOD2.5 ML TOP (17:58)
[2024-07-07] MEDS ORDERED: EUCERIN1 CRE TOP (18:00)
[2024-07-07] MEDS ORDERED: FOSAMAX 70MG TA70 MG PO (18:02)
[2024-07-07] MEDS ORDERED: ATARAX50 MG PO (18:04)
[2024-07-07] MEDS ORDERED: IBU600 MG PO (18:04)
[2024-07-07] MEDS ORDERED: ALEVE LIQCAPS PO (18:07)
[2024-07-07] MEDS ORDERED: NORVASC2.5 MG PO (18:07)
[2024-07-07] MEDS ORDERED: PHENERGAN 25 TA25 MG PO (18:08)
[2024-07-07] MEDS ORDERED: PRILOSEC 20MG20 MG PO (18:08)
[2024-07-07] MEDS ORDERED: INDERAL 10MG10 MG PO (18:24)
[2024-07-07] MEDS ORDERED: ZANAFLEX2 MG PO (18:25)
[2024-07-07] MEDS ORDERED: Acetaminophen 325 MG TAB PO PRN (18:30)
[2024-07-07] MEDS ORDERED: Ondansetron 4 MG/2 ML VIAL IV PRN (18:30)
[2024-07-07] MEDS ORDERED: Polyethylene Glycol 3350 17 GM PDS PO PRN ×2 (18:30→19:30)
[2024-07-07] MEDS ORDERED: NS 1,000 ML IV SCH (18:30)
[2024-07-07] MEDS ORDERED: *Potassium Replacement Protocol MC SCH (18:45)
[2024-07-07] MEDS ORDERED: Albuterol/Ipratropium 3 MG-0.5 MG/3 ML Neb Soln IH PRN (18:45)
[2024-07-07] MEDS ORDERED: Potassium Bicarbonate/Citrate 20 MEQ Effervescent TAB PO SCH (18:45)
[2024-07-07] MEDS ORDERED: cefTRIAXone 1 G in Water For Injection,Sterile 10 ML IV SCH (19:00)
[2024-07-07] MEDS ORDERED: Formoterol Neb Soln 20 MCG/2 ML UD IH SCH (19:00)
[2024-07-07] MEDS ORDERED: Budesonide Neb Susp 0.5 MG/2 ML AMP IH SCH (19:00)
[2024-07-07] MEDS ORDERED: Azithromycin 500 MG in NS 250 ML IV SCH (19:00)
[2024-07-07 19:01] LABS: COLLECTION METHOD CLEAN CATCH
[2024-07-07] MEDS ORDERED: VOLTAREN GEL 1%1 TU TP (19:06)
[2024-07-07 19:11] LABS: URINE APPEARANCE CLEAR (CLEAR/HAZY); URINE BLOOD TRACE (NEGATIVE); URINE COLOR YELLOW (YELLOW); URINE GLUCOSE NEGATIVE (NEGATIVE); URINE KETONE 1+ (NEGATIVE); URINE NITRATE NEGATIVE (NEGATIVE); URINE PROTEIN(semi-quant) 2+ (NEGATIVE); URINE UROBILINOGEN 0.2 E.U/dL (0.2-1.0)
[2024-07-07] MEDS ORDERED: NICODERM C14 MG/PATC TD (19:13)
[2024-07-07] MEDS ORDERED: Bisacodyl 5 MG TAB PO PRN (19:15)
[2024-07-07] MEDS ORDERED: hydrOXYzine HCl 25 MG TAB PO PRN (19:15)
[2024-07-07] MEDS ORDERED: NORCO 325 MG-7.1 TAB PO (19:16)
[2024-07-07] MEDS ORDERED: ZOLOFT 100MG100 MG PO (19:17)
[2024-07-07] MEDS ORDERED: DEXTROMETHORPHAN PO PRN (19:30)
[2024-07-07] MEDS ORDERED: GUAIFENESIN PO PRN (19:30)
[2024-07-07] MEDS ORDERED: hydrALAZINE 20 MG/ML 1 ML VIAL IV PRN (20:15)
[2024-07-07 20:22] VITALS: BP 164/85; PULSE 110; TEMP 98.1
[2024-07-07 21:00] VITALS: BP_SYST 164
[2024-07-07] MEDS ORDERED: traZODone 100 MG TAB PO SCH (21:00)
[2024-07-07] MEDS ORDERED: Propranolol 10 MG TAB PO SCH (21:00)
[2024-07-07] MEDS ORDERED: Cyclobenzaprine 10 MG TAB PO SCH (21:00)
[2024-07-07] MEDS ORDERED: Sennosides/Docusate 8.6-50 MG TAB PO SCH (21:00)
[2024-07-07] MEDS ORDERED: [UNRECOGNIZED DRUG - REMARK] PO SCH (21:00)
[2024-07-07] MEDS ORDERED: Rosuvastatin 20 MG **** subs to Atorvastatin 40 MG PO SCH (21:00)
[2024-07-07] MEDS ORDERED: Atorvastatin 40 MG TAB PO SCH (21:00)
[2024-07-07] MEDS ORDERED: lamoTRIgine 100 MG TAB PO SCH (21:00)
--- NOTE | 2024-07-07 22:21 | NUR ---
INITIAL ASSESSMENT COMPLETED AT THIS TIME. PT A&OX4. PT DENIES PAIN, SOB AND NAUSEA. PT RESTING IN BED UPON ENTRANCE. INT TO RIGHT AC NOT FLUSHING. O2 AT 2L PER NC. SCHEDULED MEDICATIONS ADMINISTERED AT THIS TIME. CALL LIGHT WITHIN REACH. NO FURTHER NEEDS AT THIS TIME.
--- NOTE | 2024-07-07 23:15 | NUR ---
IV TO RIGHT AC INFILTRATED. THIS NURSE ATTEMPTED TO START ANTHER IV AND FAILED. TYLER LARA ATTEMPTED ANOTHER IV AND FAILED. STEM SIZER NOTIFED.
[2024-07-08] VITALS (12 sets, daily range): BP systolic 126–164; BP diastolic 55–82; PULSE 58–81; TEMP 98.1–98.5
--- NOTE | 2024-07-08 01:00 | NUR ---
PAID SEARCH MARKETING ANALYST PLACED AN IV IN PT'S LEFT FA. FLUSHES WITHOUT COMPLICATIONS.
--- NOTE | 2024-07-08 06:25 | NUR ---
PT RESTING IN BED UPON ENTRANCE. MORNING MEDICATIONS ADMINISTERED WITHOUT COMPLICATIONS AT THIS TIME. DROPLET PRECAUTIONS STILL IN PLACE. CALL LIGHY WITHIN REACH. NO FURTHER NEEDS AT THIS TIME.
[2024-07-08 06:53] LABS: BASO % 0.3 % (0.0-2.0); GRAN # 2.5 K/mm3 (1.4-6.5); GRAN % 70.6 % (42.2-75.2); LYMPH # 0.5 K/mm3 (1.2-3.4); LYMPH % 14.8 % (20.0-51.0); MEAN CELL VOLUME 87 fl (80.0-100.0); MEAN CORPUSCULAR HGB CONC 32 g/dl (33.0-37.0); MEAN PLATELET VOLUME 10.4 fl (7.4-10.4); MONO # 0.5 K/mm3 (0.1-0.6); PLATELET COUNT 195 K/mm3 (130-400); RED BLOOD COUNT 3.81 M/mm3 (4.10-5.30); REDCELL DISTRIBUTION WIDTH-CV 14.8 % (11.5-14.5)
[2024-07-08 06:56] LABS: CALCIUM 7.9 mg/dL (8.4-10.2); CREATININE, serum 0.73 mg/dL (0.57-1.11); POTASSIUM 3.5 mEq/L (3.5-4.5)
[2024-07-08] MEDS ORDERED: Levothyroxine 0.1 MG,Levothyroxine 0.075 MG PO SCH (07:00)
[2024-07-08 07:04] LABS: HEMATOCRIT 33.1 % (37.0-47.0); HEMOGLOBIN 10.5 g/dl (12.5-16.0); MEAN CORPUSCULAR HEMOGLOBIN 28 pg (27-31)
[2024-07-08] MEDS ORDERED: Potassium Bicarbonate/Citrate 20 MEQ Effervescent TAB PO SCH (08:30)
--- NOTE | 2024-07-08 08:54 | NUR ---
Patient resting in bed, watching TV, getting 2L O2 NC sat 95%/ and fluids per orders. She has sporadic cough non productive. Assessment completed, meds given. No further needs at this time. Call light within reach.
[2024-07-08] MEDS ORDERED: dexAMETHasone 10 MG/ML VIAL IV SCH (09:00)
[2024-07-08] MEDS ORDERED: Nicotine 14 MG DAILY PATCH TD SCH (09:00)
[2024-07-08] MEDS ORDERED: Lidocaine 4% Topical Patch TP PRN (09:00)
[2024-07-08] MEDS ORDERED: Influenza Virus Vaccine, Hi-Dose Triv '24-25 (65 YR+) 0.5 ML SYRINGE IM SCH (09:00)
[2024-07-08] MEDS ORDERED: hydroCHLOROthiazide 25 MG TAB PO SCH (09:00)
[2024-07-08] MEDS ORDERED: Mineral Oil/Petrolatum Cream 113 GM Jar TP PRN (09:00)
[2024-07-08] MEDS ORDERED: Oseltamivir 30 MG CAP PO SCH (09:00)
--- NOTE | 2024-07-08 10:50 | NUR ---
Patient is comming back from restroom. Now watching TV. Potassium replaced. Educated about its need. No furthe needs at this time.
--- NOTE | 2024-07-08 13:45 | NUR ---
bunk house worker met with patient to discuss discharge planning. Patient lives in [place] at [facility]. Titi (son) P# [phone], Robert (son) P# [phone]. PCP is Dr. Boyer, Pharmacy is [facility]. No issues affording medications. Insurance is Medicare [place] [employer] and Medicaid [place]. DPOA-HC is Ron. No DME at home. Patient is currently on oxygen and is not on oxygen at her baseline. Patient reports she is independent with ADLS at her MD and patient reports [facility] staff transports her to and from appointments. Patient would like to return to [facility] upon discharge. SW explained she would send updates to them, so they know how she has been doing. Patient stated she would appreciate that. Discharge plan: Return to [facility]
[2024-07-08] MEDS ORDERED: amLODIPine 5 MG TAB PO SCH (14:00)
[2024-07-08] MEDS ORDERED: Sertraline 100 MG TAB PO SCH (14:00)
--- NOTE | 2024-07-08 14:04 | NUR ---
forming process line worker called patient's son, Titi, and provided update on patient. SW discussed discharge plan of returning to [facility] and Titi did not have any questions or concerns about this. Discharge plan: Return to [facility]
--- NOTE | 2024-07-08 16:46 | NUR ---
balancing machine set up worker attended multidisciplinary team meeting to discuss patient's progress and discharge plan. Plan is for patient to return to her Assisted [facility] at time of discharge. All are in agreement with this plan. Discharge Plan: [facility]
[2024-07-08] MEDS ORDERED: Propranolol 10 MG TAB PO SCH (19:00)
--- NOTE | 2024-07-08 20:12 | NUR ---
PATIENT RESTING IN BED WATCHING TV. REPORTS PAIN WHEN SHE COUGHS 5/10. DENIES CHILLS, SHORTNESS OF BREATH, NAUSEA. CURRENTLY ON ROOM AIR. CALL LIGHT WITHIN REACH. BED IS LOCKED AND IN LOW POSITION.
[2024-07-09 00:43] VITALS: BP_SYST 150
[2024-07-09 03:35] VITALS: BP 155/74; PULSE 60; TEMP 98.9
[2024-07-09 05:11] VITALS: BP_SYST 155
[2024-07-09 06:28] LABS: BASO % 0.5 % (0.0-2.0); GRAN # 2.7 K/mm3 (1.4-6.5); GRAN % 60.4 % (42.2-75.2); HEMOGLOBIN 11.1 g/dl (12.5-16.0); LYMPH # 1.2 K/mm3 (1.2-3.4); LYMPH % 26.5 % (20.0-51.0); MEAN CELL VOLUME 87 fl (80.0-100.0); MEAN CORPUSCULAR HEMOGLOBIN 27 pg (27-31); MEAN CORPUSCULAR HGB CONC 31 g/dl (33.0-37.0); MEAN PLATELET VOLUME 10.9 fl (7.4-10.4); MONO # 0.6 K/mm3 (0.1-0.6); MONO % 12.4 % (1.7-9.3); PLATELET COUNT 209 K/mm3 (130-400); RED BLOOD COUNT 4.06 M/mm3 (4.10-5.30); REDCELL DISTRIBUTION WIDTH-CV 15.2 % (11.5-14.5)
[2024-07-09 06:29] LABS: HEMATOCRIT 35.3 % (37.0-47.0)
[2024-07-09 06:41] LABS: CALCIUM 8.4 mg/dL (8.4-10.2); CREATININE, serum 0.76 mg/dL (0.57-1.11); POTASSIUM 3.8 mEq/L (3.5-4.5)
--- NOTE | 2024-07-09 07:00 | NUR ---
BEDSIDE SHIFT REPORT RECEIEVED AT THIS TIME.
[2024-07-09 08:10] VITALS: BP 141/67; PULSE 60; TEMP 98.2
--- NOTE | 2024-07-09 09:50 | NUR ---
SHIFT ASSESSMENT COMPLETED AT THIS TIME. PT A&OX4. PT RESTING IN BED UPON ENTRANCE. DROPLET PRECAUTIONS IN PLACE. PT DENIES PAIN AND NAUSEA. PT REPORTS SOB ON EXERTION AND CHEST PAIN RELATED TO THE COUGH. PT HAS NO CONCERNS OR NEEDS AT THIS TIME. PT REQUESTS DISCHARGE TODAY. MORNING MEDICATIONS ADMINISTERED WITHOUT COMPLICATIONS. CALL LIGHT WITHIN REACH. NO FUTHER NEEDS AT THIS TIME.
[2024-07-09 09:54] VITALS: BP_SYST 141
--- NOTE | 2024-07-09 10:20 | NUR ---
NURSE PRACTIONER FROM [employer] CALLED THIS NURSE REQUESTING AN UPDATE ON PT. UPDATED PROVIDER. DISCHARGE ORDERS RECIEVED AT THIS TIME.
[2024-07-09] MEDS ORDERED: OXYGEN (10:21)
[2024-07-09] MEDS ORDERED: OMNICEF 300MG300 MG PO (10:22)
[2024-07-09] MEDS ORDERED: MEDROL 4MG DOSPA4 MG PO (10:22)
[2024-07-09] MEDS ORDERED: TAMIFLU30 MG PO (10:23)
[2024-07-09] MEDS ORDERED: NICODERM C7 MG/PATCH TD (10:27)
[2024-07-09] MEDS ORDERED: Azithromycin 250 MG TAB PO SCH (12:00)
--- NOTE | 2024-07-09 12:15 | NUR ---
DISCHAGRE ORDERS RECIEVED. DISCHARGE INSTRUCTIONS/EDUCATION PROVIDED. PT VOICES UNDERSTANDING. INT DC'D. TELE DC'D. [facility] STAFF HERE TO TRANSFER PT TO FACILITY. PT ESCORTED VIA WHEELCHAIR TO VEHICLE.
[2024-07-09] MEDS ORDERED: PROAIR HFA0.09 MG/AC IH (12:21)
--- NOTE | 2024-07-09 16:16 | NUR ---
Pediatric Dental Assistant was notified by Hospitalist that patient will be discharged today back to [facility] and will need oxygen set up. SW met with patient who is agreeable to this plan and requested oxygen be ordered through [facility]. YOGI contacted [facility] and faxed referral with orders. Oxygen was delivered up to patient's room. YOGI contacted [facility] and spoke with Jamel, Director. YOGI faxed discharge orders and transportation was sent to scrap picker patient. YOGI attempted to contacted patient's son, Titi and left a message. Discharge Plan; Return to [facility] with oxygen
== END 2024-07-09 12:15 | disposition home or self-care (01) | DRG 189 ==
LOC: COL.ER 15:53 → MEDICAL 19:18
PROVIDERS: Nurse Practitioner Family; Physician Assistant; ADMIT Hospitalist
DX: J96.01 Acute respiratory failure with hypoxia (principal); J44.1 Chronic obstructive pulmonary disease with (acute) exacerbation; E87.1 Hypo-osmolality and hyponatremia; E87.20 Acidosis, unspecified; E78.5 Hyperlipidemia, unspecified; K21.9 Gastro-esophageal reflux disease without esophagitis; E03.9 Hypothyroidism, unspecified; F41.9 Anxiety disorder, unspecified; F31.9 Bipolar disorder, unspecified; M81.0 Age-related osteoporosis without current pathological fracture; Z79.82 Long term (current) use of aspirin; Z79.890 Hormone replacement therapy; Z87.891 Personal history of nicotine dependence; J10.1 Influenza due to other identified influenza virus with other respiratory manifestations; E87.8 Other disorders of electrolyte and fluid balance, not elsewhere classified; G25.0 Essential tremor; E87.6 Hypokalemia; G47.00 Insomnia, unspecified; G89.29 Other chronic pain
CPT/HCPCS: J0456; J0696; J1100; J1650; J7030; J7050; J7120